=== PATIENT | female | born 1990 | race American Indian/Alaskan Native ===

== ENCOUNTER 2017-09-16 02:32 | Emergency (ER) | payer OTHER ==
[2017-09-16 02:51] VITALS: BP 114/49
[2017-09-16] MEDS ORDERED: PEPCID PO ONE (05:47)
[2017-09-16] MEDS ORDERED: BENADRYL PO ONE (05:47)
[2017-09-16] MEDS ORDERED: DECADRON IM ONE (05:47)
--- NOTE | 2017-09-16 05:56 | Emergency Department Report ---
ED Allergic Reaction HPI - General Chief complaint: Skin Rash Stated complaint: ALLERGIC REACTION Time Seen by Provider: 09/16/17 05:36 Source: patient Mode of arrival: Ambulatory Limitations: Language Barrier - History of Present Illness Initial Comments: 30-year-old female past medical history none presents with complaint of intermittent rash and hives for the last 4 months. Patient denies any specific allergens other than eczema and she was a child. Denies any contact with eggs or consumption of eggs. Patient denies any new cosmetics pets close laundry detergent or soaps. Patient has visible hives on left thigh and left upper extremity. Patient is awake alert and oriented 3 fully lucid. No visible facial swelling. Denies fevers or chills. Accompanied with boyfriend at bedside. Patient is Turkish speaking which I speak fluently. Patient states she traveled from [facility] to the [facility] 4 months ago. No other pertinent history reported by patient. States she took some hydroxyzine earlier tonight she has been prescribed in the past for hives. Minimal relief of itching. Denies any sore throat no audible wheezing or stridor. Speaking in full sentences. MD Complaint: allergic reaction, hives -: During the night Exposure: unknown, food Symptoms: itching Severity: mild Treatment Prior to Arrival: other (hydroxyzine) Previous Allergy History: none - Related Data Previous Rx's Medication Instructions Recorded Last Taken Type Famotidine [Pepcid] 20 mg PO BID PRN #20 tablet 09/16/17 Unknown Rx Loratadine [Claritin] 10 mg PO DAILY PRN #30 tablet 09/16/17 Unknown Rx predniSONE [Deltasone] 40 mg PO QDAY #10 tab 09/16/17 Unknown Rx Allergies Allergy/AdvReac Type Severity Reaction Status Date / Time egg Allergy Rash Verified 09/16/17 06:03 ED Review of Systems ROS: Stated complaint: ALLERGIC REACTION Other details as noted in HPI Constitutional: denies: chills, fever Eyes: denies: eye pain, eye discharge, vision change ENT: denies: ear pain, throat pain Respiratory: denies: cough, shortness of breath, wheezing Cardiovascular: denies: chest pain, palpitations Endocrine: no symptoms reported Gastrointestinal: denies: abdominal pain, nausea, diarrhea Genitourinary: denies: urgency, dysuria, discharge Musculoskeletal: denies: back pain, joint swelling, arthralgia Skin: rash, pruritus. denies: lesions Neurological: denies: headache, weakness, paresthesias Psychiatric: denies: anxiety, depression Hematological/Lymphatic: denies: easy bleeding, easy bruising ED Past Medical Hx - Past Medical History Previous Medical History?: No - Surgical History Past Surgical History?: No - Social History Smoking Status: Never Smoker Substance Use Type: None - Medications Home Medications: Home Medications Medication Instructions Recorded Confirmed Last Taken Type Famotidine [Pepcid] 20 mg PO BID PRN #20 tablet 09/16/17 Unknown Rx Loratadine [Claritin] 10 mg PO DAILY PRN #30 tablet 09/16/17 Unknown Rx predniSONE [Deltasone] 40 mg PO QDAY #10 tab 09/16/17 Unknown Rx ED Physical Exam - General Limitations: Language Barrier General appearance: alert, in no apparent distress - Head Head exam: Present: atraumatic, normocephalic - Eye Eye exam: Present: normal appearance - ENT ENT exam: Present: mucous membranes moist - Neck Neck exam: Present: normal inspection - Respiratory Respiratory exam: Present: normal lung sounds bilaterally. Absent: respiratory distress - Cardiovascular Cardiovascular Exam: Present: regular rate, normal rhythm. Absent: systolic murmur, diastolic murmur, rubs, gallop - GI/Abdominal GI/Abdominal exam: Present: soft, normal bowel sounds - Extremities Exam Extremities exam: Present: normal inspection - Back Exam Back exam: Present: normal inspection - Neurological Exam Neurological exam: Present: alert, oriented X3, CN II-XII intact, normal gait - Psychiatric Psychiatric exam: Present: normal affect, normal mood - Skin Skin exam: Present: warm, dry, intact, normal color, urticaria. 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 ED Disposition Clinical Impression: Hives Disposition: TO HOME OR SELFCARE Is pt being admited?: No Does the pt Need Aspirin: No Condition: Stable Instructions: Urticaria (ED), Antihistamine (By mouth) Prescriptions: Famotidine [Pepcid] 20 mg PO BID PRN #20 tablet PRN Reason: Allergic Reaction Loratadine [Claritin] 10 mg PO DAILY PRN #30 tablet PRN Reason: Allergic Reaction predniSONE [Deltasone] 40 mg PO QDAY #10 tab Referrals: [facility] [Provider Group] - 3-5 Days [facility] [Provider Group] - 3-5 Days Forms: Accompanied Note, Work/School Release Form(ED) Time of Disposition: 06:47 Print Language: FIJIAN
[2017-09-16] MEDS ORDERED: CLARITIN PO ONE (05:57)
[2017-09-16] MEDS ORDERED: CLARITIN ONE (05:57)
[2017-09-16] MEDS ORDERED: HYDROCORTISONE CR TP ONE (05:58)
== END 2017-09-16 07:04 | disposition home or self-care (01) ==
LOC: ED 02:32
DX: L50.9 Urticaria, unspecified (principal); Z91.012 Allergy to eggs
CPT/HCPCS: 96372; 99282; J1100; A6250

== ENCOUNTER 2017-10-24 21:58 | Emergency (ER) | payer OTHER ==
[2017-10-24 23:01] LABS: Basophils % (Auto) 0.5 % (0.0-1.8); Eosinophils # (Auto) 0.1 K/mm3 (0.0-0.4); Eosinophils % (Auto) 1.2 % (0.0-4.3); Hematocrit 38.2 % (30.3-42.9); Hemoglobin 12.8 gm/dl (10.1-14.3); Lymphocytes # (Auto) 2.7 K/mm3 (1.2-5.4); Lymphocytes % (Auto) 48.4 % (13.4-35.0); Mean Corpuscular HGB Conc 33 % (30-34); Mean Corpuscular Hemoglobin 30 pg (28-32); Mean Corpuscular Volume 89 fl (79-97); Monocytes # (Auto) 0.5 K/mm3 (0.0-0.8); Monocytes % (Auto) 8.4 % (0.0-7.3); Platelet Count 207 K/mm3 (140-440); Red Cell Distribution Width 12.6 % (13.2-15.2)
--- NOTE | 2017-10-25 00:37 | Ultrasound Report ---
FINAL REPORT EXAM: US OB < = 14 WEEKS FETUS HISTORY: +hcg bleeding COMPARISON: None available. TECHNIQUE: Several real-time grayscale and color Doppler images were obtained. FINDINGS: Single live IUP. Estimated gestational age 10 weeks 2 days. Estimated delivery date May 21, 2018. heart rate 163 beats per minute. heart rate 163 beats per minute. Yolk sac is present. The right ovary measures 4.5 x 2.9 x 4.0 centimeters. Within the right ovary, there is a unilocular cyst measuring 3.7 x 2.5 x 3.0 centimeters. Left ovary measures 4.8 x 2.7 x 2.5 centimeters. Within the left ovary there is a unilocular cystic structure measuring 1.6 centimeters. No adnexal masses or free fluid. IMPRESSION: Single live IUP. Estimated gestational age 10 weeks 2 days. Estimated delivery date May 21, 2018. Probable dominant follicle left ovary measuring 1.6 centimeters. 3.7 centimeter unilocular cyst in the right ovary which may reflect corpus luteum.
[2017-10-25 01:45] LABS: Amorphous Crystals,Urine 1+; Bilirubin,Urine NEG (Negative); Blood,Urine NEG (Negative); Color,Urine Yellow (Yellow); Hyaline Casts,Urine 5 /LPF; Mucus,Urine FEW /HPF; Protein,Urine <15 mg/dL mg/dL (Negative); Urobilinogen,Urine < 2.0 mg/dL (<2.0); WBC,Urine < 1.0 /HPF (0.0-6.0)
--- NOTE | 2017-10-25 02:45 | Emergency Department Report ---
ED Female HPI - General Chief complaint: Vaginal Bleeding Stated complaint: ABD PAIN Time Seen by Provider: 10/25/17 02:14 Source: patient, RN notes reviewed Mode of arrival: Ambulatory Limitations: Language Barrier - History of Present Illness Initial comments: translator deaf: Nurse Benita Cárdenas This is a 27-year-old female who is unknown to this provider previously. She reports that she is 1, para 0, believes her last menstruation was 2 months ago, has no history of abdominal surgeries, and has no chronic medical conditions. She presents to the ER with a complaint of nontraumatic vaginal bleeding for one day. Her symptoms are intermittent, did not radiate anywhere, and did not have exacerbating or relieving factors. She denies irritative, obstructive urinary symptoms. MD Complaint: vaginal bleeding -: Gradual Location: suprapubic Radiation: non-radiating Severity: mild Quality: cramping Consistency: intermittent Improves with: none Worsens with: none Are you Now?: Yes Associated Symptoms: vaginal bleeding, abdominal pain. denies: vaginal discharge, nausea/vomiting, fever/chills, headaches, loss of appetite, dysuria, hematuria, rash, seizure, shortness of breath, syncope, weakness - Related Data Sexually active: Yes Previous Rx's Medication Instructions Recorded Last Taken Type Famotidine [Pepcid] 20 mg PO BID PRN #20 tablet 09/16/17 Unknown Rx Loratadine [Claritin] 10 mg PO DAILY PRN #30 tablet 09/16/17 Unknown Rx predniSONE [Deltasone] 40 mg PO QDAY #10 tab 09/16/17 Unknown Rx Doxylamine Succinate/Vit B6 1 each PO QHS PRN #30 tablet. 10/25/17 Unknown Rx [Davis Philip 10-10 mg Tablet] Monique Root [Monique] 250 mg PO QID PRN #30 capsule 10/25/17 Unknown Rx Vit Calc,Iron,Folic 1 each PO QDAY #30 tablet 10/25/17 Unknown Rx [ Vitamins] Allergies Allergy/AdvReac Type Severity Reaction Status Date / Time egg Allergy Rash Verified 09/16/17 06:03 ED Review of Systems ROS: Stated complaint: ABD PAIN Other details as noted in HPI Comment: All other systems reviewed and negative ED Past Medical Hx - Past Medical History Previous Medical History?: No - Surgical History Past Surgical History?: No - Social History Smoking Status: Never Smoker Substance Use Type: None - Medications Home Medications: Home Medications Medication Instructions Recorded Confirmed Last Taken Type Famotidine [Pepcid] 20 mg PO BID PRN #20 tablet 09/16/17 Unknown Rx Loratadine [Claritin] 10 mg PO DAILY PRN #30 tablet 09/16/17 Unknown Rx predniSONE [Deltasone] 40 mg PO QDAY #10 tab 09/16/17 Unknown Rx Doxylamine Succinate/Vit B6 1 each PO QHS PRN #30 tablet.dr 10/25/17 Unknown Rx [Diclegis Dr 10-10 mg Tablet] Monique Root [Monique] 250 mg PO QID PRN #30 capsule 10/25/17 Unknown Rx Vit Calc,Iron,Folic 1 each PO QDAY #30 tablet 10/25/17 Unknown Rx [ Vitamins] ED Physical Exam - General Limitations: Language Barrier General appearance: alert, in no apparent distress - Head Head exam: Present: atraumatic, normocephalic - Eye Eye exam: Present: normal appearance, EOMI. Absent: nystagmus - ENT ENT exam: Present: normal exam, normal orophraynx, mucous membranes moist, normal external ear exam - Neck Neck exam: Present: normal inspection, full ROM - Respiratory Respiratory exam: Present: normal lung sounds bilaterally. Absent: respiratory distress - Cardiovascular Cardiovascular Exam: Present: regular rate, normal rhythm, normal heart sounds. Absent: bradycardia, tachycardia, irregular rhythm, systolic murmur, diastolic murmur, rubs, gallop - GI/Abdominal GI/Abdominal exam: Present: soft, normal bowel sounds. Absent: distended, tenderness, guarding, rebound, rigid, pulsatile mass - External exam: Present: normal external exam Speculum exam: Absent: vaginal bleeding Bi-manual exam: Present: other (escorted by nurse Benita Kwok) - Extremities Exam Extremities exam: Present: normal inspection, full ROM, normal capillary refill. Absent: tenderness, pedal edema, joint swelling, calf tenderness - Back Exam Back exam: Present: normal inspection, full ROM. Absent: tenderness, CVA tenderness (R), paraspinal tenderness, vertebral tenderness - Neurological Exam Neurological exam: Present: alert, oriented X3, CN II-XII intact, other ( Extraocular movements intact. Tongue midline. No facial droop. Facial sensation intact to light touch in the V1, V2, V3 distribution bilaterally. 5 and 5 strength in 4 extremities.. Sensation is intact to light touch in 4 extremities.). Absent: motor sensory deficit - Psychiatric Psychiatric exam: Present: normal affect, normal mood - Skin Skin exam: Present: warm, dry, intact, normal color. Absent: rash ED Course Vital Signs 10/24/17 22:16 Temperature 98 F Pulse Rate 74 Respiratory 18 Rate Blood Pressure 122/76 O2 Sat by Pulse 100 Oximetry ED Medical Decision Making - Lab Data Result diagrams: 10/24/17 22:24 Vital Signs 10/24/17 22:16 Temperature 98 F Pulse Rate 74 Respiratory 18 Rate Blood Pressure 122/76 O2 Sat by Pulse 100 Oximetry Lab Results 10/24/17 10/24/17 10/24/17 Range/Units 22:22 22:24 22:24 WBC 5.6 (4.5-11.0) K/mm3 RBC 4.30 (3.65-5.03) M/mm3 Hgb 12.8 (10.1-14.3) gm/dl Hct 38.2 (30.3-42.9) % MCV 89 (79-97) fl MCH 30 (28-32) pg MCHC 33 (30-34) % RDW 12.6 L (13.2-15.2) % Plt Count 207 (140-440) K/mm3 Lymph % (Auto) 48.4 H (13.4-35.0) % Dickson % (Auto) 8.4 H (0.0-7.3) % Eos % (Auto) 1.2 (0.0-4.3) % Baso % (Auto) 0.5 (0.0-1.8) % Lymph # 2.7 (1.2-5.4) K/mm3 Dickson # 0.5 (0.0-0.8) K/mm3 Eos # 0.1 (0.0-0.4) K/mm3 Baso # 0.0 (0.0-0.1) K/mm3 Seg Neutrophils % 41.5 (40.0-70.0) % Seg Neutrophils # 2.3 (1.8-7.7) K/mm3 HCG, Quant 98260 H (0-4) mIU/mL Urine Color (Yellow) Urine Turbidity (Clear) Urine pH (5.0-7.0) Ur Specific [place] (1.003-1.030) Urine Protein (Negative) mg/dL Urine Glucose (UA) (Negative) mg/dL Urine Ketones (Negative) mg/dL Urine Blood (Negative) Urine Nitrite (Negative) Urine Bilirubin (Negative) Urine Urobilinogen (<2.0) mg/dL Ur Leukocyte Esterase (Negative) Urine WBC (Auto) (0.0-6.0) /HPF Urine RBC (Auto) (0.0-6.0) /HPF U Epithel Cells (Auto) (0-13.0) /HPF Amorphous Crystals Hyaline Casts /LPF Urine Mucus /HPF Blood Type O POSITIVE Antibody Screen Negative 10/24/17 Range/Units Unknown WBC (4.5-11.0) K/mm3 RBC (3.65-5.03) M/mm3 Hgb (10.1-14.3) gm/dl Hct (30.3-42.9) % MCV (79-97) fl MCH (28-32) pg MCHC (30-34) % RDW (13.2-15.2) % Plt Count (140-440) K/mm3 Lymph % (Auto) (13.4-35.0) % Dickson % (Auto) (0.0-7.3) % Eos % (Auto) (0.0-4.3) % Baso % (Auto) (0.0-1.8) % Lymph # (1.2-5.4) K/mm3 Dickson # (0.0-0.8) K/mm3 Eos # (0.0-0.4) K/mm3 Baso # (0.0-0.1) K/mm3 Seg Neutrophils % (40.0-70.0) % Seg Neutrophils # (1.8-7.7) K/mm3 HCG, Quant (0-4) mIU/mL Urine Color Yellow (Yellow) Urine Turbidity Clear (Clear) Urine pH 7.0 (5.0-7.0) Ur Specific [place] 1.009 (1.003-1.030) Urine Protein <15 mg/dl (Negative) mg/dL Urine Glucose (UA) Neg (Negative) mg/dL Urine Ketones Neg (Negative) mg/dL Urine Blood Neg (Negative) Urine Nitrite Neg (Negative) Urine Bilirubin Neg (Negative) Urine Urobilinogen < 2.0 (<2.0) mg/dL Ur Leukocyte Esterase Neg (Negative) Urine WBC (Auto) < 1.0 (0.0-6.0) /HPF Urine RBC (Auto) 3.0 (0.0-6.0) /HPF U Epithel Cells (Auto) 1.0 (0-13.0) /HPF Amorphous Crystals 1+ Hyaline Casts 5 /LPF Urine Mucus Few /HPF Blood Type Antibody Screen - Radiology Data Radiology results: report reviewed, image reviewed Obstetrics ultrasound demonstrates intrauterine , no evidence of bleeding, no evidence of hemorrhage. - Medical Decision Making Differential diagnosis, including but not limited to: Urinary tract infection, miscarriage, threatened miscarriage Assessment and plan: 27-year-old female with vaginal bleeding, no lower abdominal tenderness, rebound or guarding, laboratory studies unremarkable, ultrasound confirms intrauterine , urinalysis is not consistent with urinary tract infection and the patient is Rh+. Patient is hemodynamically stable without any abdominal tenderness, rebound or guarding, she is medically suitable to follow up with outpatient primary care doctor or [facility] doctor to initiate care. Extensive discussion had with the patient using a translator deaf regarding need for close outpatient follow-up. Critical care attestation.: If time is entered above; I have spent that time in minutes in the direct care of this critically ill patient, excluding procedure time. ED Disposition Clinical Impression: Threatened miscarriage Disposition: DC-01 TO HOME OR SELFCARE Is pt being admited?: No Does the pt Need Aspirin: No Condition: Good Instructions: Threatened Miscarriage (ED) Additional Instructions: Rest, and avoid heavy lifting. Avoid strenuous physical activity. Follow-up as soon as possible with an outpatient [facility] doctor to start care. Avoid sex and sexual activity until cleared by an [facility] doctor. Return to the ER right away with new pain, worsening pain, migration of pain, intractable nausea or vomiting, confusion, inability to tolerate liquid feeds, bleeding within 2 pads soaked for hour, lightheadedness, chest pain, loss of consciousness. Descanse y evite levantar objetos pesados. Evite la actividad fsica extenuante. Ajay un seguimiento lo ms pronto posible con un mdico obstetra / gineclogo ambulatorio para comenzar la atencin . Evite el sexo y la actividad sexual hasta que sea aprobado por un obstetra / gineclogo. Regrese a la jean pierre de urgencias con dolor nuevo, empeoramiento del dolor, migracin de dolor, nuseas o vmitos intratables, confusin, incapacidad para tolerar lquidos, hemorragia en 2 almohadillas empapadas enrique horas, aturdimiento, dolor en el pecho, prdida del conocimiento. Referrals: [facility] [Primary Care Provider] - 3-5 Days [facility] [Provider Group] - 3-5 Days [facility] [Provider Group] - 3-5 Days [facility] [Provider Group] - 3-5 Days
[2017-10-25 04:44] VITALS: BP 116/53
== END 2017-10-25 04:43 | disposition home or self-care (01) ==
LOC: ED 21:58
DX: O20.0 Threatened abortion (principal); Z3A.10 10 weeks gestation of pregnancy; Z91.012 Allergy to eggs
CPT/HCPCS: 36415; 76801; 81001; 84702; 85025; 86850; 86900; 86901